=== PATIENT | male | born 1955 | race Caucasian/White ===

== ENCOUNTER 2018-07-09 23:30 | Emergency (ER) | payer BC, OTHER ==
--- NOTE | 2018-07-09 23:45 | PDOC ---
History of Present Illness - General Stated Complaint: FALL, RIGHT ARM INJURY Time Seen by Provider: 07/09/18 23:45 - History of Present Illness Initial Comments: 07/10/18 00:11 Mr. Moreira is a 62 yo male w/ pmh of HLD who presents for evaluation s/p fall earlier today. Patient reports he was walking up his steps when he "missed one" and fell onto his right elbow. Patient denies any LOC, head injury, or vertigo/ dizziness beforehand. Patient complaining of R elbow pain at this time only. The patient denies chest pain, shortness of breath, headache and dizziness. Denies fever, chills, nausea, vomit, diarrhea and constipation. Denies dysuria, frequency, urgency and hematuria. Past History - Past Medical History Allergies/Adverse Reactions: Allergies Allergy/AdvReac Type Severity Reaction Status Date / Time No Known Allergies Allergy Verified 07/09/18 23:55 Review of Systems - Review of Systems Comments:: 07/10/18 00:11 GENERAL/CONSTITUTIONAL: No fever or chills. No weakness. HEAD, EYES, EARS, NOSE AND THROAT: No change in vision. No ear pain or discharge. No sore throat. CARDIOVASCULAR: No chest pain or shortness of breath RESPIRATORY: No cough, wheezing, or hemoptysis. GASTROINTESTINAL: No nausea, vomiting, diarrhea or constipation. GENITOURINARY: No dysuria, frequency, or change in urination. MUSCULOSKELETAL: +Right elbow pain / pain w/ movement.. No neck or back pain. SKIN: No rash NEUROLOGIC: No headache, vertigo, loss of consciousness, or change in strength/ sensation. ENDOCRINE: No increased thirst. No abnormal weight change HEMATOLOGIC/LYMPHATIC: No anemia, easy bleeding, or history of blood clots. ALLERGIC/IMMUNOLOGIC: No hives or skin allergy. *Physical Exam - Physical Exam Comments: 07/10/18 00:12 GENERAL: Awake, alert, and fully oriented, in no acute distress HEAD: No signs of trauma, normocephalic, atraumatic EYES: PERRLA, EOMI, sclera anicteric, conjunctiva clear ENT: Auricles normal inspection, hearing grossly normal, nares patent, oropharynx clear without exudates. Moist mucosa NECK: Normal ROM, supple, no lymphadenopathy, JVD, or masses LUNGS: No distress, speaks full sentences, clear to auscultation bilaterally HEART: Regular rate and rhythm, normal S1 and S2, no murmurs, rubs or gallops, peripheral pulses normal and equal bilaterally. ABDOMEN: Soft, nontender, normoactive bowel sounds. No guarding, no rebound. No masses EXTREMITIES: +Redness and moderate swelling noted to R elbow w/ pain on flexion of elbow however normal strength/ range of motion. No clubbing or cyanosis. NEUROLOGICAL: Cranial nerves II through XII grossly intact. Normal speech, normal gait, no focal sensorimotor deficits SKIN: Warm, Dry, normal turgor, no rashes or lesions noted. Medical Decision Making - Medical Decision Making 07/10/18 04:16 Mr. Moreira is a 62 yo male w/ pmh as described who presents for evaluation s/ p fall. Patient pain controlled initially with 800mg motrin. Patient initial xrays inconclusive. Repeat XR negative for acute findings after patient pain controlled with percocet; allowing for better views. Discharging patient to home w/ instructions to f/u w/ ortho as needed. Patient verbalized understanding and agreement and will comply. *DC/Admit/Observation/Transfer Diagnosis at time of Disposition: Fall Qualifiers: Encounter type: initial encounter Qualified Code(s): W19.XXXA - Unspecified fall, initial encounter Elbow contusion Qualifiers: Encounter type: initial encounter Laterality: right Qualified Code(s): S50.01XA - Contusion of right elbow, initial encounter - Discharge Dispostion Disposition: HOME Condition at time of disposition: Fair - Referrals Referrals: Jose Burgess [Primary Care Provider] - Martinez Alvarez MD [Staff Physician] - - Patient Instructions Printed Discharge Instructions: DI for Elbow Pain Additional Instructions: You were evaluated today in the ER after your fall. No fracture was identified at this time. We have provided orthopedic follow-up for you as needed - please contact them if pain has not improved in 2-3 days. Return to ER if any fevers, pain not controllable with over the counter medications, or other concerning symptoms. - Post Discharge Activity
--- NOTE | 2018-07-09 23:48 | PDOC ---
Attending Attestation - Resident Resident Name: Alex Martinez - HPI HPI: 07/10/18 01:19 PT presents to the ED after trip and fall down one step complaining of pain and redness to his R elbow. Denies other compliants except for mild numbness and tingling that involves his entire hand and arm. - Physicial Exam PE: 07/10/18 01:20 Agree with resident exam. + very mild redness to the R elbow without tenderness or deformity. Full ROM. - Medical Decision Making 07/10/18 01:21 Pt presents to the Ed complaining of mild swelling and pain to the R elbow after fall. Will check xray to rule out fx, discharge home if negative.
[2018-07-09 23:55] VITALS: BP 148/91; PULSE 67; TEMP 98.4; BMI 29.7
[2018-07-10] MEDS ORDERED: IBUPROFEN 400 MG TABLET (FP) PO ONE ×2 (00:32)
== END 2018-07-10 04:35 | disposition home or self-care (01) ==
LOC: JER 23:30
DX: S50.01XA Contusion of right elbow, initial encounter (principal); W10.8XXA Fall (on) (from) other stairs and steps, initial encounter; Y93.89 Activity, other specified; Y92.018 Other place in single-family (private) house as the place of occurrence of the external cause; Y99.8 Other external cause status; E78.00 Pure hypercholesterolemia, unspecified
CPT/HCPCS: 73060-TC-RT-FY; 73070-TC-RT-FY; 73090-TC-RT-FY; 99281-25